=== PATIENT | male | born 1995 | race Caucasian/White ===

== ENCOUNTER 2022-05-01 13:54 | Emergency (ER) | payer OTHER ==
[~2022-05-01] VITALS: Ht 182.9 cm; Wt 72.6 kg
== END 2022-05-01 16:17 | disposition home or self-care (01) ==
LOC: ER 13:54
DX: S50.861A Insect bite (nonvenomous) of right forearm, initial encounter (principal); G62.9 Polyneuropathy, unspecified; F17.200 Nicotine dependence, unspecified, uncomplicated; W57.XXXA Bitten or stung by nonvenomous insect and other nonvenomous arthropods, initial encounter; Z88.8 Allergy status to other drugs, medicaments and biological substances; Z91.018 Allergy to other foods
CPT/HCPCS: 99281

== ENCOUNTER 2022-09-19 21:35 | Emergency (ER) | payer SELFPAY ==
[~2022-09-19] VITALS: Ht 182.9 cm; Wt 70.3 kg
[2022-09-19 21:59] VITALS: BP 135/79
== END 2022-09-20 00:20 | disposition home or self-care (01) ==
LOC: ER 21:35
DX: R07.89 Other chest pain (principal); Z88.8 Allergy status to other drugs, medicaments and biological substances; Z91.018 Allergy to other foods; F17.210 Nicotine dependence, cigarettes, uncomplicated
CPT/HCPCS: 71046; 93005; 93010; 96372; 99285-25; A9270; J1885